=== PATIENT | female | born 1945 | race African-American/Black ===

== ENCOUNTER 2022-04-18 15:17 | Outpatient (CLI) | payer MEDICARE | END 2022-04-18 15:18 | disposition home or self-care (01) | LOC: CSHMAMMO 15:17 | PROVIDERS: ATTEND Family Medicine | DX: Z12.31 Encounter for screening mammogram for malignant neoplasm of breast (principal); Z80.3 Family history of malignant neoplasm of breast | CPT/HCPCS: 77063; 77067 ==

== ENCOUNTER 2022-10-22 12:15 | Emergency (ER) | payer MEDICARE, OTHER ==
[2022-10-22] MEDS ORDERED: Ketorolac Tromethamine 30 MG/ML VIAL ONE (13:25)
== END 2022-10-22 13:47 | disposition home or self-care (01) ==
LOC: CSHERS 12:15
DX: M54.41 Lumbago with sciatica, right side (principal); I10 Essential (primary) hypertension
CPT/HCPCS: 96372; 99283; J1885